=== PATIENT | male | born 1980 | race African-American/Black ===

== ENCOUNTER 2017-07-08 19:51 | Emergency (ER) | payer SELFPAY ==
[~2017-07-08] VITALS: Ht 165.1 cm; Wt 72.1 kg
[2017-07-08 20:30] VITALS: BP 118/78
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
[2017-07-08] MEDS ORDERED: LIDOCAINE700 M1 TP (21:38)
[2017-07-08 21:45] VITALS: BP 118/78
[2017-07-08] MEDS ORDERED: Methocarbamol 750mg tab ORAL ONE (21:45)
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
== END 2017-07-08 21:45 | disposition home or self-care (01) ==
LOC: EMR 20:30
DX: R07.81 Pleurodynia (principal); V43.52XA Car driver injured in collision with other type car in traffic accident, initial encounter; Y93.9 Activity, unspecified; Y92.410 Unspecified street and highway as the place of occurrence of the external cause; Z88.6 Allergy status to analgesic agent
CPT/HCPCS: 99283